=== PATIENT | male | born 1980 | race American Indian/Alaskan Native ===

== ENCOUNTER 2019-09-30 23:34 | Emergency (ER) | payer OTHER ==
[2019-10-01] MEDS ORDERED: LORazepam 2 MG/ML VIAL IM PRN (00:39)
[2019-10-01] MEDS ORDERED: diphenhydrAMINE 50 MG/ML VIAL IM PRN (00:39)
[2019-10-01] MEDS ORDERED: HALOPERIDOL LACTATE 5 MG/1 ML INJ IM PRN (00:39)
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
[2019-10-01 01:37] LABS: Basophils % (Auto) 0.4 % (0.0-1.8); Eosinophils % (Auto) 0.4 % (0.0-4.3); Hematocrit 43.8 % (35.5-45.6); Hemoglobin 14.5 gm/dl (11.8-15.2); Lymphocytes # (Auto) 1.3 K/mm3 (1.2-5.4); Mean Corpuscular HGB Conc 33 % (32-34); Mean Corpuscular Volume 89 fl (84-94); Monocytes # (Auto) 0.4 K/mm3 (0.0-0.8); Monocytes % (Auto) 6.8 % (0.0-7.3); Platelet Count 300 K/mm3 (140-440); Red Blood Count 4.92 M/mm3 (3.65-5.03); Red Cell Distribution Width 15.1 % (13.2-15.2)
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
[2019-10-01 01:47] LABS: Bacteria,Urine 1+ /HPF (Negative); Bilirubin,Urine NEG (Negative); Blood,Urine LG (Negative); Color,Urine Yellow (Yellow); Mucus,Urine 1+ /HPF; Urobilinogen,Urine < 2.0 mg/dL (<2.0)
[2019-10-01 01:54] LABS: Amphetamine Screen,Urine PRESUMPTIVE NEGATIVE; Benzodiazepines Screen,Urine PRESUMPTIVE NEGATIVE; Cannabinoid Screen,Urine PRESUMPTIVE NEGATIVE; Methadone Screen,Urine PRESUMPTIVE NEGATIVE; Opiate Screen,Urine PRESUMPTIVE NEGATIVE
[2019-10-01 01:57] LABS: Cocaine Screen,Urine PRESUMPTIVE POSITIVE
[2019-10-01 02:05] LABS: Alanine Aminotransferase 98 units/L (7-56); Albumin 4.4 g/dL (3.9-5); BUN/Creatinine Ratio 9; Blood Urea Nitrogen 8 mg/dL (9-20); Calcium 9.3 mg/dL (8.4-10.2); Hemolysis Index 5
[2019-10-01] MEDS ORDERED: levoFLOXacin 250 MG TAB PO SCH (02:23)
[2019-10-01] MEDS ORDERED: amLODIPine 5 MG TAB PO ONE (07:25)
[2019-10-01] MEDS ORDERED: LOSARTAN 50 MG TAB PO ONE ×2 (07:25)
[2019-10-01 14:00] VITALS: BP 171/108
[2019-10-02] MEDS ORDERED: amLODIPine 5 MG TAB PO SCH (10:00)
[2019-10-02] MEDS ORDERED: LOSARTAN 50 MG TAB PO SCH (10:00)
[2019-10-02] MEDS ORDERED: amLODIPine 10 MG TAB PO SCH (10:00)
== END 2019-10-01 16:31 ==
LOC: ED 23:34
DX: N39.0 Urinary tract infection, site not specified (principal); R45.851 Suicidal ideations; I10 Essential (primary) hypertension; F17.200 Nicotine dependence, unspecified, uncomplicated
CPT/HCPCS: 36415; 70450; 80053; 80307; 80320; 81001; 85025; 87086; 99285; G0480